=== PATIENT | male | born 1960 | race Hispanic/Latino ===

== ENCOUNTER 2016-09-06 09:44 | Day surgery (SDC) | payer OTHER ==
[~2016-09-06 09:44] MED LIST: ANCEF/STERILE WATER 2 GM/20 ML 2 GM/20 ML SYRINGE IV NR; NACL 0.9% IR ONE; NEOSPORIN GU IR ONE
[2016-09-06] MEDS ORDERED: ZOFRAN IV PRN (10:14)
[2016-09-06] MEDS ORDERED: DILAUDID IV PRN (10:14)
[2016-09-06] MEDS ORDERED: SUBLIMAZE ONE (10:35)
[2016-09-06] MEDS ORDERED: DIPRIVAN 10 MG/ML IV ONE (10:36)
[2016-09-06] MEDS ORDERED: XYLOCAINE MPF 2% ONE (10:37)
[2016-09-06] MEDS ORDERED: ROBINUL ONE (10:37)
[2016-09-06] MEDS ORDERED: ZOFRAN ONE (10:38)
[2016-09-06] MEDS ORDERED: PEPCID PO NR (11:00)
[2016-09-06] MEDS ORDERED: VERSED IV NR (11:00)
[2016-09-06] MEDS ORDERED: NACL 0.9% 1000 ML 1,000 ML IV SCH (11:00)
[2016-09-06] MEDS ORDERED: ANCEF/STERILE WATER 2 GM/20 ML 2 GM/20 ML SYRINGE IV NR (11:00)
[2016-09-06] MEDS ORDERED: MARCAINE-EPI 0.5%-1:200,000 INFILTRATI ONE (11:06)
[2016-09-06] MEDS: SUBLIMAZE IV PRN ×2 (11:13→11:18)
[2016-09-06 11:15] LABS: Basophils % (Auto) 0.9 % (0.0-1.8); Eosinophils % (Auto) 3.1 % (0.0-4.3); Hematocrit 46.5 % (35.5-45.6); Hemoglobin 15.6 gm/dl (11.8-15.2); Mean Corpuscular HGB Conc 34 % (32-34); Mean Corpuscular Hemoglobin 31 pg (28-32); Mean Corpuscular Volume 94 fl (84-94); Platelet Count 219 K/mm3 (140-440); Red Blood Count 4.96 M/mm3 (3.65-5.03); White Blood Count 4.3 K/mm3 (4.5-11.0)
[2016-09-06] MEDS ORDERED: NEOSPORIN GU IR ONE (13:17)
[2016-09-06] MEDS ORDERED: NACL 0.9% IR ONE (13:17)
--- NOTE | 2016-09-06 13:58 | Post Anesthesia Evaluation ---
- Post Anesthesia Evaluation Patient Participated: No (resting comfortably) Airway Patent: Yes Stable Respiratory Function: Yes Nausea/Vomiting: No Temp > 96.8F: Yes Pain Manageable: Yes Adequeate Hydration: Yes Anesthesia Complications: No Block Receding Appropriately: Not Applicable Patient on Ventilator: No
--- NOTE | 2016-09-06 14:34 | Short Stay Summary ---
Short Stay Documentation Date of service: 09/06/16 - History H&P: obtained from office - Allergies and Medications Current Medications: Allergies No Known Allergies Allergy (Verified 08/26/16 11:43) Home Medications Medication Instructions Recorded Confirmed Last Taken Type Ibuprofen [Motrin] 200 - 600 mg PO Q6H PRN 08/26/16 09/06/16 08/30/16 History Active Medications Famotidine (Pepcid) 20 mg PO PREOP NR Stop: 09/06/16 23:59 Last Admin: 09/06/16 10:57 Dose: 20 mg Fentanyl (Sublimaze) 50 mcg IV Q5MIN PRN PRN Reason: Pain , Severe (7-10) Stop: 09/06/16 18:00 Last Admin: 09/06/16 11:18 Dose: 50 mcg Hydromorphone HCl (Dilaudid) 0.5 mg IV Q10MIN PRN PRN Reason: Pain , Severe (7-10) Stop: 09/06/16 18:00 Sodium Chloride (Nacl 0.9% 1000 Ml) 1,000 mls @ 100 mls/hr IV DIRECT GUERRERO Last Admin: 09/06/16 10:58 Dose: 100 mls/hr Cefazolin Sodium (Ancef/Sterile Water 2 Gm/20 Ml) 2 gm in 20 mls @ 80 mls/hr IV PREOP NR PRN Reason: Protocol Stop: 09/06/16 23:59 Midazolam HCl (Versed) 2 mg IV PREOP NR Stop: 09/06/16 23:59 Last Admin: 09/06/16 11:11 Dose: 2 mg Ondansetron HCl (Zofran) 4 mg IV ONCE PRN PRN Reason: Nausea And Vomiting Stop: 09/06/16 18:00 - Brief post op/procedure progress note Date of procedure: 09/06/16 Pre-op diagnosis: Rotator cuff tear, inpingment, biceps tendinosis,Right shoulder Post-op diagnosis: same Procedure: Acromioplasty, rotator cuff repair, biceps tenodesis Anesthesia: regional Findings: biceps tendinosis and fraying, 0.5 cm rotator cuff tear Surgeon: VANESA GAO Cash Surrender Calculator: DEIRDRE FAITH Estimated blood loss: minimal Pathology: none Specimen disposition: discarded Condition: stable - Disposition Condition at discharge: Stable Disposition: DISCHARGED TO HOME OR SELFCARE - Discharge Diagnoses (1) Rotator cuff impingement syndrome of right shoulder Status: Resolved Short Stay Discharge Plan Follow up with: PRIMARY CARE, [Primary Care Provider] - 7 Days
[2016-09-06 15:15] VITALS: BP 127/68
--- NOTE | 2016-09-07 07:32 | Operative Report ---
PREOPERATIVE DIAGNOSES: Rotator cuff tear, impingement syndrome, biceps tendinosis of the right shoulder. POSTOPERATIVE DIAGNOSES: Rotator cuff tear, impingement syndrome, biceps tendinosis of the right shoulder. PROCEDURE: Rotator cuff repair, acromioplasty, biceps tenodesis (mini open approach). SURGEON: Zenia Chicas MD HEEL COVERER MACHINE OPERATOR: Marixa Roa RN ANESTHESIA: Local block, general. COMPLICATIONS: None. BLOOD LOSS: Minimal. FINDINGS: The patient was found to have an area 0.5 cm of a partial thickness tear of the rotator cuff at the supraspinatus tendon insertion, the tendon was almost completely thinned out. The patient's biceps tendon was found to have fraying more than 50% of the surface. PROCEDURE IN DETAIL: Once the patient was in surgical room, a time-out was carried out to identify the patient and procedure, prepping and draping of the patient done in usual fashion, the patient was placed in a semi-seated position. A 2 cm incision was carried out over the top of the shoulder in line with acromion. Blunt dissection was carried out to subcutaneous tissues exposing the deltoid muscle. The interval between the anterior and medial deltoid muscles was developed. This allowed for the insertion of Gelpi retractor, which was opened up exposing the subacromial space. The 5 mm of the tendon were released in the upper portion to exposing the tip of the acromion. An elevator was placed underneath. At this point, using a small saw, a vertical and horizontal cut was carried out removing about 8-9 mm undersurface of the bone doing the acromioplasty. At this point, a bursectomy of the shoulder was carried out with Muller scissors. The patient was found to have large thick bursas which were resected in circumferential basis along the shoulder. Once the bursas were removed, evaluation of the rotator cuff and biceps tendon was done. The biceps tendon was found to be partially frayed. Therefore, it was decided to go ahead and proceed with the tenodesis. Using a #2-0 Orthocord suture, a Krackow suture was placed for a distance of 1.5 cm on the tendon below the biceps groove, following that the diseased tendon was cut, and the stump of the tendon was removed from the shoulder. Once this was done, the procedure was continued by the insertion of a SwiveLock anchor. The anchor was inserted into the shoulder using a screw driver operator, first for preparation of the cortex. Following this, the sutures from the biceps tenodesis were placed to the anchor. The anchor was placed into the fixation ____ and inserted, the anchor was then tightened pulling the biceps tendon back into the tunnel. Following that, the biceps tendon sheath was then repaired resuturing on the secondary base of the tendon to the area. Once this was done, the procedure was continued ____ the rotator cuff. The area of the supraspinatus tendon, the area ____ it was found. The repair of this area was carried out by using a FiberTape which was inserted ____ needle and creating 2 limbs through the rotator cuff. These were connected to a second SwiveLock, anchor which was placed on the upper portion of the humerus, the anchor was placed. The suture was placed to the anchor and the anchor was inserted and locked in place. Once this was done, the procedure was terminated. The wound irrigated extensively. The wound closed by closing the deltoid, ____ with interrupted sutures of 2-0 Ethibond ____ incision was closed with 2-0 Vicryl, the skin closed with subcuticular closure and Steri-Strips. The patient tolerated the procedure well. There were no complications. JOB# [id number] LAURO/YANDY
== END 2016-09-06 15:28 | disposition home or self-care (01) ==
LOC: OR 09:44
DX: S46.011A Strain of muscle(s) and tendon(s) of the rotator cuff of right shoulder, initial encounter (principal); M75.41 Impingement syndrome of right shoulder; M75.21 Bicipital tendinitis, right shoulder; Z87.891 Personal history of nicotine dependence; Z72.89 Other problems related to lifestyle; Z83.3 Family history of diabetes mellitus; Z82.49 Family history of ischemic heart disease and other diseases of the circulatory system; Z80.9 Family history of malignant neoplasm, unspecified; X58.XXXA Exposure to other specified factors, initial encounter
CPT/HCPCS: 23130; 23410; 24341; 36415; 85025; A4217; C1713; J0690; J2250; J2405; J2704; J3010; J7030; L1830